=== PATIENT | female | born 1940 | race African-American/Black ===

== ENCOUNTER 2021-06-28 18:44 | Inpatient (IN) | payer OTHER ==
[~2021-06-28] VITALS: Ht 157.5 cm; Wt 99.8 kg
[~2021-06-28 18:44] MED LIST: ADVAIR 100-501 EACH INH; ALLOPURINOL 10100 M1 PO; ALPHAGAN P15 ML OPHTHALMIC; AMLODIPINE BESY10 MG PO; ASPIRIN81 M2 PO; CALCIUM 600 +1 EA13 PO; CATAPRES0.2 MG PO; DIOVAN 80 MG TA80 M1 PO; HYDRALAZINE 2525 MG PO; IMDUR 60 MG TAB60 M1 PO; JANUVIA 50 MG T50 M1 PO; K-DUR 20 MEQ T20 MEQ PO; LANTUS100 UNIT/M SUBQ; LASIX 80 MG TAB80 MG PO; LOVASTATIN 20 M20 MG PO; NEXIUM20 MG PO; NORCO 5-325 TA1 EACH PO; NOVOLOG100 UNIT/1 SUBQ; SYNTHROID75 MC1 PO; TIMOLOL MA0.5 %/5 M2 OPHTHALMIC; VENTOLIN HFA 1818 GM INH
[2021-06-28 18:58] VITALS: BP 165/76
[2021-06-28 20:07] LABS: ABSOLUTE NEUTROPHILS 6.8 thou/uL (1.4-8.2); BASOPHILS 0.4 % (0.0-2.0); EOSINOPHILS 0.2 % (0.0-3.0); HEMATOCRIT 39.4 % (37.0-47.0); HEMOGLOBIN 13.1 gm/dL (12.0-15.0); LYMPHOCYTES 15.2 % (24.0-44.0); MCH 26.1 pg (26.0-34.0); MCHC 33.3 g/dL (28.0-37.0); MCV 78.5 fL (80.0-100.0); MONOCYTES 5.5 % (1.0-8.0); PLATELET COUNT 303 thou/uL (150-400); POLYS 78.7 % (36.0-66.0); RBC 5.01 mil/uL (4.20-5.00); RDW 15.6 % (10.5-14.5); WBC 8.6 thou/uL (4.0-11.0)
[2021-06-28 20:10] LABS: BE(vivo) -3.1 mmol/L (-2 to +3); HCO3 20.6 mmol/L (22.0-26.0); PO2 73.1 mmHg (80.0-100.0); pH 7.413 (7.360-7.450); sO2 95.1 % (92.0-98.0)
[2021-06-28 20:26] LABS: ALBUMIN 3.2 g/dL (3.4-5.0); CALCIUM 9.4 mg/dL (8.5-10.1); CREATININE 1.9 mg/dL (0.6-1.0); DIRECT BILIRUBIN 0.1 mg/dL (<0.1-0.2); POTASSIUM 5.2 mmol/L (3.5-5.1); TOTAL BILIRUBIN 0.4 mg/dL (0.2-1.0); TOTAL PROTEIN 7.4 g/dL (6.4-8.2)
--- NOTE | 2021-06-28 23:05 | NUR ---
unable to successfully insert iv Left EJ. i contacted brynn ledesma d/t numerous attempts to obtain iv access by multiple staff members. she will see patient to place IV before transfer to floor.
[2021-06-29] VITALS (10 sets, daily range): BP systolic 133–226; BP diastolic 41–95
[2021-06-29 00:59] LABS: URINE BILIRUBIN NEGATIVE (Negative); URINE BLOOD 1+ (Negative); URINE CLARITY CLEAR; URINE COLOR YELLOW; URINE GLUCOSE-RANDOM* 3+ (Negative); URINE KETONES NEGATIVE (Negative); URINE LEUKOCYTES-REFLEX NEGATIVE (Negative); URINE NITRITE-REFLEX NEGATIVE (Negative); URINE PROTEIN (DIPSTICK) NEGATIVE (Negative); URINE UROBILINOGEN 0.2 E.U./dl (0.2-1.0)
[2021-06-29 01:12] LABS: CASTS None Seen /LPF (None Seen); CRYSTALS None Seen /LPF (None Seen); MUCUS 0-3 Light strn/LPF (None Seen); SQUAMOUS 0-3 Few /LPF (0-3); URINE RBC 3-10 Few /HPF (NONE SEEN); WBC CLUMPS Few (None Seen)
--- NOTE | 2021-06-29 03:59 | NUR ---
PT WAS ADMITTED TO THE FLOOR FROM THE ER IN A STABLE CONDITION.BP ON ADMIT WAS ELEVATED,PT GOT HER PRN MED IN THE ER BEFORE COMING TO THE FLOOR.ADMISSION COMPLETED.PT INTRODUCED TO ROOM AND CALL LIGHT.PT ABLE TO MAKE HER NEEDS KNOWN.CALL LIGHT WITHIN REACH.
--- NOTE | 2021-06-29 07:14 | EKG ---
[place] [address] [address] [facility] [place] [address] ELECTROCARDIOGRAM REPORT Name: AMBROSIO SALAS Room #: 207-P [facility] IN M.R.#: [id number] Admission: 06/28/21 Attend Phys: Neo Ray MD Discharge: Date of : 40 Report #: [id number] [facility] ED Test Date: 2021-06-28 Test Time: 20:26:01 Pat Name: AMBROSIO SALAS Department: Room: [facility] Gender: F Nurse Emergency Room: : 1940 Requested By: Luiz Coates Order Number: [id number] : Jaylon Ramirez Measurements Intervals Aldie Rate: 87 P: 49 [place]: 133 QRS: 14 QRSD: 130 T: -2 QT: 379 QTc: 456 Interpretive Statements Sinus rhythm Left atrial enlargement Right bundle branch block No previous ECG available for comparison Electronically Signed On 06-29-2021 7:13:51 CDT by Jaylon Ramirez [email or web address] <ELECTRONICALLY SIGNED> By: Jaylon Ramirez MD, [facility] 06/29/21712 25 25 Jaylon Ramirez MD, FACC /EPI
[2021-06-29 08:17] LABS: HEMATOCRIT 35.7 % (37.0-47.0); HEMOGLOBIN 12.2 gm/dL (12.0-15.0); MCH 26.5 pg (26.0-34.0); MCHC 34.3 g/dL (28.0-37.0); MCV 77.3 fL (80.0-100.0); RBC 4.62 mil/uL (4.20-5.00); RDW 15.5 % (10.5-14.5); WBC 9.6 thou/uL (4.0-11.0)
[2021-06-29] MEDS ORDERED: FREESTYLE LIBR1 EAC2 MISCELL (08:21)
[2021-06-29 08:28] LABS: CALCIUM 9.4 mg/dL (8.5-10.1); CREATININE 1.2 mg/dL (0.6-1.0); POTASSIUM 4.7 mmol/L (3.5-5.1)
[2021-06-29 09:52] LABS: FOLIC ACID 11.2 ng/mL (8.6-58.9)
--- NOTE | 2021-06-29 16:51 | NUR ---
ASSESSMENT CHARTED - MEDS PER SEAN - LOLIS DIET AND FLUIDS WITH NO CO'S OF NAUSEA. PT BG AT LUNCH [address] DR NOTIFIED INSULIN DOSES CHANGED. BP ELEVATED PT STARTED ON LABATELOL. UP TO THE BSC WITH ASSIST. PT AND OT SAW PT TODAY. IV FLUIDS D/C'S ORDERED. NO CO'S AT THE PRESENT TIME.
--- NOTE | 2021-06-29 17:38 | NUR ---
Met with patient who admits with hyperglycemia. Patient resides at home with dtr. She resides in independent home with one step to enter and 4 inside home. Patient uses cane at home and community. dtr is paid caregiver via [employer]. dtr works during day. patient with no concerns being alone during day. She reports 2 sons check on her and a niece often comes by to visist. Dtr does laundry, driving, coonking and cleaning. Patient with hx of snf at [facility] and HH in past cannot recall agency. Therapy evals in process. Frederickmegt following.
[2021-06-29] MEDS ORDERED: LIPITOR 20 MG T20 M1 PO (18:20)
[2021-06-29] MEDS ORDERED: COZAAR100 MG PO (18:21)
[2021-06-29] MEDS ORDERED: CARVEDILOL12.5 MG PO (18:22)
[2021-06-29] MEDS ORDERED: FAMOTIDINE 20 M20 MG PO (18:23)
[2021-06-29] MEDS ORDERED: OZEMPIC1 MG/0.75 SUBQ (18:24)
[2021-06-29] MEDS ORDERED: FLEXERIL PO (18:26)
[2021-06-29] MEDS ORDERED: COMBIGAN EYE DR10 ML EA. EYE (21:29)
[2021-06-30 00:06] LABS: GLYCOHEMOGLOBIN (HGB A1C) 11.5 % (4.8-5.6)
[2021-06-30 04:20] VITALS: BP 99/83
--- NOTE | 2021-06-30 04:37 | NUR ---
assessments as charted, pt repositioned as needed, resting quietly in room, vss, up with assist and using cane to br, will con't to monitor per ppoc.
[2021-06-30 04:54] LABS: CALCIUM 9.2 mg/dL (8.5-10.1); CREATININE 1.3 mg/dL (0.6-1.0); PHOSPHORUS 3.3 mg/dL (2.5-4.9); POTASSIUM 4.7 mmol/L (3.5-5.1)
[2021-06-30 05:26] LABS: HEMATOCRIT 33.3 % (37.0-47.0); HEMOGLOBIN 11.5 gm/dL (12.0-15.0); MCH 26.8 pg (26.0-34.0); MCHC 34.4 g/dL (28.0-37.0); MCV 77.9 fL (80.0-100.0); RBC 4.28 mil/uL (4.20-5.00); RDW 15.7 % (10.5-14.5)
[2021-06-30 07:28] VITALS: BP 171/76
[2021-06-30 11:31] VITALS: BP 111/54
[2021-06-30] MEDS ORDERED: HYDRALAZINE 5050 MG PO (14:06)
[2021-06-30] MEDS ORDERED: FLEXERIL PO (14:09)
[2021-06-30] MEDS ORDERED: NORCO5 PO (14:11)
[2021-06-30] MEDS ORDERED: AAA-MED REC COMPLETE PO (14:15)
[2021-06-30 16:02] VITALS: BP 141/58
--- NOTE | 2021-06-30 18:18 | NUR ---
ASSESSMENT CHARTED - MEDS PER NOV - NO CO'S OF PAIN OR NAUSEA - LOLIS DIET AND FLUIDS. UP TO THE BATHROOM FOR A SHOWER - AMBULATED IN THE ROOM WITH PHYS THERAPY. DINNER INSULIN HELD DUE TO 83 BG AFTER LUNCH INSULIN GIVEN AND POOR PO INTAKE. PT WITH NO CO'S AT THE PRESENT TIME.
[2021-06-30 19:46] VITALS: BP 153/80
[2021-07-01 05:02] VITALS: BP 148/79
[2021-07-01 07:30] VITALS: BP 148/83
[2021-07-01] MEDS ORDERED: TRANDATE 200 M200 M1 PO (08:41)
[2021-07-01] MEDS ORDERED: COZAAR 50 MG TA50 MG PO (08:41)
[2021-07-01] MEDS ORDERED: LANTUS SUBQ ×2 (08:43→08:47)
[2021-07-01] MEDS ORDERED: ALLOPURINOL 10100 M1 PO (08:43)
[2021-07-01] MEDS ORDERED: HUMALOG100 UNIT/1 SUBQ (08:43)
[2021-07-01] MEDS ORDERED: CEFUROXIME500 MG PO (09:08)
[2021-07-01 09:53] VITALS: BP 148/83
[2021-07-01] MEDS ORDERED: FREESTYLE LIBR1 EAC2 MISCELL (10:33)
[2021-07-01] MEDS ORDERED: FREESTYLE LIBR1 EAC3 MISCELL (10:33)
--- NOTE | 2021-07-01 11:46 | NUR ---
Pt dcing home this afternoon. Son at bedside. listing provided yesterday and reviewed with pt and son at bedside this morning. Pt denies preference other than participation with her ins plan. Kiara COLEMAN liason onsite indicates they can take a new referral with her ins plan. She will visit with the pt as well. Pt agreeable to Kiara coleman. Has needed dme in place. Kiara COLMEAN confirmed orders.
[2021-07-01 12:00] VITALS: BP 100/51
[2021-07-01 14:40] VITALS: BP 148/83
[2021-07-01 15:06] VITALS: BP 148/83
--- NOTE | 2021-07-01 15:23 | NUR ---
PATIENT DISCHARGED. DISCHARGE EDUCATION AND INSTRUCTIONS DISCUSSED WITH PATIENT AND DAUGHTER AT BEDSIDE. NO QUESTIONS OR CONCERNS AT TIME OF TEACHING. IV AND TELE REMOVED. PATIENT TAKEN IN WHEELCHAIR BY STAFF TO PRIVATE VEHCILE WHERE DAUGHTER WAITS
== END 2021-07-01 16:00 | disposition home health service (06) | DRG 637 ==
LOC: ER 18:44 → EROBS 21:43 → 2N 21:43 → EROBS 06-29 01:08 → 2N 06-29 01:31
PROVIDERS: Nurse Practitioner; Nurse Practitioner Family; ADMIT Hospitalist; ATTEND Hospitalist
DX: E11.65 Type 2 diabetes mellitus with hyperglycemia (principal); N17.0 Acute kidney failure with tubular necrosis; R65.11 Systemic inflammatory response syndrome (SIRS) of non-infectious origin with acute organ dysfunction; Z68.41 Body mass index [BMI] 40.0-44.9, adult; I16.0 Hypertensive urgency; Z20.822 Contact with and (suspected) exposure to COVID-19; E86.0 Dehydration; E87.5 Hyperkalemia; I25.10 Atherosclerotic heart disease of native coronary artery without angina pectoris; E78.5 Hyperlipidemia, unspecified; E03.9 Hypothyroidism, unspecified; E66.9 Obesity, unspecified; I12.9 Hypertensive chronic kidney disease with stage 1 through stage 4 chronic kidney disease, or unspecified chronic kidney disease; E11.22 Type 2 diabetes mellitus with diabetic chronic kidney disease; N18.30 Chronic kidney disease, stage 3 unspecified; I27.20 Pulmonary hypertension, unspecified; Z95.5 Presence of coronary angioplasty implant and graft; Z79.82 Long term (current) use of aspirin; Z79.899 Other long term (current) drug therapy; Z88.8 Allergy status to other drugs, medicaments and biological substances; Z88.6 Allergy status to analgesic agent; Z91.040 Latex allergy status; Z23 Encounter for immunization
CPT/HCPCS: 10081

== ENCOUNTER → 2021-09-28 | Emergency (ER) | payer OTHER ==
[~2021-09-28] MED LIST changes: +AAA-MED REC COMPLETE PO; +CARVEDILOL12.5 MG PO; +CEFUROXIME500 MG PO; +COMBIGAN EYE DR10 ML EA. EYE; +COZAAR 50 MG TA50 MG PO; +COZAAR100 MG PO; +FAMOTIDINE 20 M20 MG PO; +FLEXERIL PO; +FREESTYLE LIBR1 EAC2 MISCELL; +FREESTYLE LIBR1 EAC3 MISCELL; +HUMALOG100 UNIT/1 SUBQ; +HYDRALAZINE 5050 MG PO; +LANTUS SUBQ; +LIPITOR 20 MG T20 M1 PO; +MEDROLDOSEPACK PO; +NORCO5 PO; +OZEMPIC1 MG/0.75 SUBQ; +TRANDATE 200 M200 M1 PO
[2021-09-28 21:02] VITALS: BP 201/85
== END ==
LOC: ER 20:49
DX: L50.9 Urticaria, unspecified (principal); I12.9 Hypertensive chronic kidney disease with stage 1 through stage 4 chronic kidney disease, or unspecified chronic kidney disease; E11.22 Type 2 diabetes mellitus with diabetic chronic kidney disease; N18.30 Chronic kidney disease, stage 3 unspecified; E03.9 Hypothyroidism, unspecified; Z91.040 Latex allergy status; Z88.8 Allergy status to other drugs, medicaments and biological substances; Z88.5 Allergy status to narcotic agent